=== PATIENT | male | born 1960 | race Caucasian/White ===

== ENCOUNTER 2018-05-09 18:40 | Emergency (ER) | payer OTHER ==
[~2018-05-09] VITALS: Ht 172.7 cm; Wt 72.6 kg
[~2018-05-09 18:40] MED LIST: CO Q-1010 MG PO; GARLIC100 MG PO; KEFLEX500 MG PO; MULTIPLE VITAMI1 CAP PO; ZOFRAN4 MG PO
[2018-05-09] MEDS ORDERED: CO Q-10 RED YE1 EACH PO (19:07)
[2018-05-09] MEDS ORDERED: GARLIC1 EAC1 PO (19:07)
[2018-05-09] MEDS ORDERED: MULTIVITAMINS1 EAC5 PO (19:07)
[2018-05-09] MEDS ORDERED: ST. JOSEPH ASPI81 M1 PO (19:07)
== END 2018-05-09 20:57 | disposition home or self-care (01) ==
LOC: ED 18:40
DX: S01.81XA Laceration without foreign body of other part of head, initial encounter (principal); Z23 Encounter for immunization; Z79.899 Other long term (current) drug therapy; Z79.82 Long term (current) use of aspirin; W22.8XXA Striking against or struck by other objects, initial encounter; Y93.89 Activity, other specified; Y92.89 Other specified places as the place of occurrence of the external cause; Y99.9 Unspecified external cause status

== ENCOUNTER → 2018-11-21 | Outpatient (CLI) | payer OTHER ==
[~2018-11-21] MED LIST changes: +CO Q-10 RED YE1 EACH PO; +COQ1050 MG PO; +GARLIC1 EAC1 PO; +MULTIVITAMINS1 EAC5 PO; +OMEGA 3 1,0001 EACH PO; +OMEGA 3 FISH O1 EACH PO; +ST. JOSEPH ASPI81 M1 PO
== END | disposition home or self-care (01) ==
LOC: CARD 13:48
DX: I35.0 Nonrheumatic aortic (valve) stenosis (principal)

== ENCOUNTER → 2019-01-29 | Outpatient (CLI) | payer OTHER ==
--- NOTE | ~2019-01-29 | ST ---
[place], [place] EXERCISE STRESS TEST REPORT NAME: DEMARIO HENDERSON UNIT #: [id number] ROOM: DOCTOR: URMILA MACK MD BIRTHDATE: [birth year] DOS: 01/29/2019 PHARMACOLOGICAL NUCLEAR STRESS TEST REASON FOR TESTING: Aortic stenosis. Baseline EKG, normal sinus rhythm, normal EKG. PROCEDURE: The patient received a rapid infusion of regadenoson 0.4 mg IV followed by saline flush. The patient experienced lightheadedness and dizziness. There were no EKG changes. There was an appropriate heart rate and blood pressure response to the infusion. Isotope was injected 40 seconds later. IMPRESSION: Well tolerated pharmacological stress test. Please see the separate imaging report for further details of the stress test results. Urmila Mack MD CM:STRESS:EXERCISE STRESS TEST REPORT [id number] URMILA MACK MD
--- NOTE | 2019-01-29 10:15 | NUR ---
INFORMED CONSENT OBTAINED FOR LEXISCAN NUCLEAR STRESS TEST WITH DR. MACK. RESTING EKG SINUS SHERWIN WITH A HR OF 56 WITH BP OF 122/76. LUNGS CLEAR WITH SPO2 OF 99% ON ROOM AIR. PT COMPLETED A 1:00 LEXISCAN PROTOCOL RECEIVING LEXISCAN 0.4 MG IV OVER 10 SECONDS. HAD NO CHEST PAIN OR ANY EKG CHANGES. DID C/O "ODD FEELING" AND FEELING LIGHTHEADED THAT WAS RELIEVED IN RECOVERY. HAD A PEAK HR OF 90 WITH BP OF 88/56. LAST RECOVERY HR OF 77 WITH BP OF 94/64. AWAITING SCANNING IN STABLE CONDITION.
== END | disposition home or self-care (01) ==
LOC: CARD 00:49
DX: I35.0 Nonrheumatic aortic (valve) stenosis (principal); I27.20 Pulmonary hypertension, unspecified; E78.5 Hyperlipidemia, unspecified; I38 Endocarditis, valve unspecified

== ENCOUNTER 2021-01-29 18:10 | Inpatient (IN) | payer OTHER ==
[~2021-01-29] VITALS: Ht 171.7 cm; Wt 75.6 kg
[2021-01-29 18:18] VITALS: BP 110/78
[2021-01-29 18:40] LABS: BASO # 0.1 10*3/uL (0.0-0.1); BASO % 0.6 % (0.0-1.0); EOS % 0.4 % (1.0-4.0); HEMATOCRIT 45.5 % (42.0-52.0); LYMPH # 1.6 10*3/uL (1.3-4.4); LYMPH % 14.5 % (27.0-41.0); MEAN CELL VOLUME 97.6 fl (80.0-94.0); MEAN CORPUSCULAR HGB 32.4 pg (27.0-31.0); MEAN CORPUSCULAR HGB CONC 33.2 g/dl (33.0-37.0); MEAN PLATELET VOLUME 9.9 fl (9.6-12.3); MONO # 0.7 10*3/uL (0.1-1.0); MONO % 6.2 % (3.0-9.0); NEUT # 8.5 10*3/uL (2.3-7.9); NEUT % 78.1 % (47.0-73.0); PLATELET COUNT AUTOMATED 225 10*3/uL (130-400); RED BLOOD COUNT 4.66 10*6/uL (4.50-5.90); RED CELL DISTRI WIDTH 12.1 % (0-14.5); WHITE BLOOD COUNT 10.9 10*3/uL (4.8-10.8)
[2021-01-29 18:50] VITALS: BP 96/61
[2021-01-29 18:57] LABS: ALBUMIN 3.7 gm/dl (3.1-4.5); ALKALINE PHOSPHATASE 53 U/L (45-117); BUN 20 mg/dl (7-24); CHLORIDE 107 mmol/L (98-107); CREATININE 1.33 mg/dL (0.70-1.30); POTASSIUM 3.9 mmol/L (3.5-5.1); SGOT/AST 18 IU/L (3-35); SGPT/ALT 35 U/L (12-78); SODIUM 140 mmol/L (136-145); TOTAL PROTEIN 7.8 gm/dL (6.4-8.2)
[2021-01-29 18:58] LABS: TROPONIN I < 0.015 ng/ml (<0.045)
[2021-01-29 20:26] VITALS: BP 113/71
[2021-01-29 21:33] LABS: BILIRUBIN Negative (Negative); BLOOD Negative (Negative); CLARITY Clear (Clear); COLOR Yellow (Yellow); GLUCOSE Negative (Negative); KETONE 1+ (Negative); LEUKO ESTERASE Negative (Negative); NITRITE Negative (Negative)
[2021-01-29 21:45] LABS: BACTERIA TRACE; MUCOUS 2+; RBC 0-2 rbc/hpf (0-2)
[2021-01-29 22:30] VITALS: BP 111/71
[2021-01-29 22:38] VITALS: BP 110/68
[2021-01-29] MEDS ORDERED: ST. JOSEPH ASPI81 M1 PO (22:55)
[2021-01-29] MEDS ORDERED: METOPROLOL SUCC25 M2 PO (22:55)
[2021-01-30 06:09] LABS: BASO # 0.1 10*3/uL (0.0-0.1); BASO % 0.8 % (0.0-1.0); EOS # 0.1 10*3/uL (0.0-0.4); EOS % 1.6 % (1.0-4.0); LYMPH # 2.1 10*3/uL (1.3-4.4); LYMPH % 33.8 % (27.0-41.0); MEAN CELL VOLUME 98.1 fl (80.0-94.0); MEAN CORPUSCULAR HGB 32.8 pg (27.0-31.0); MEAN CORPUSCULAR HGB CONC 33.4 g/dl (33.0-37.0); MEAN PLATELET VOLUME 10.2 fl (9.6-12.3); MONO # 0.7 10*3/uL (0.1-1.0); MONO % 10.6 % (3.0-9.0); NEUT # 3.3 10*3/uL (2.3-7.9); PLATELET COUNT AUTOMATED 192 10*3/uL (130-400); RED BLOOD COUNT 4.18 10*6/uL (4.50-5.90); RED CELL DISTRI WIDTH 12.1 % (0-14.5); WHITE BLOOD COUNT 6.2 10*3/uL (4.8-10.8)
[2021-01-30 06:37] LABS: BUN 16 mg/dl (7-24); CHLORIDE 109 mmol/L (98-107); CHOLESTEROL 178 mg/dL (<200); CREATININE 0.98 mg/dL (0.70-1.30); LDL CHOLESTEROL 110 mg/dL (9-159); POTASSIUM 3.6 mmol/L (3.5-5.1); SODIUM 141 mmol/L (136-145); TRIGLYCERIDES 63 mg/dl (<150)
[2021-01-30 08:00] VITALS: BP 112/64
[2021-01-30 12:00] VITALS: BP 132/88
== END 2021-01-30 15:09 | disposition home or self-care (01) | DRG 312 ==
LOC: ED 18:10 → EDHOLD 21:26 → 5E 21:26
PROVIDERS: Internal Medicine; Nurse Practitioner Family; ADMIT Student in an Organized Health Care Education/Training Program; ATTEND Student in an Organized Health Care Education/Training Program
DX: R55 Syncope and collapse (principal); N17.9 Acute kidney failure, unspecified; E86.0 Dehydration; E78.5 Hyperlipidemia, unspecified; R00.1 Bradycardia, unspecified; D72.829 Elevated white blood cell count, unspecified; D75.89 Other specified diseases of blood and blood-forming organs; R73.9 Hyperglycemia, unspecified; E83.41 Hypermagnesemia; Z95.2 Presence of prosthetic heart valve; Z82.49 Family history of ischemic heart disease and other diseases of the circulatory system; Z82.3 Family history of stroke; Z79.899 Other long term (current) drug therapy

== ENCOUNTER → 2021-02-04 | Outpatient (CLI) | payer OTHER ==
[~2021-02-04] MED LIST changes: +METOPROLOL SUCC25 M2 PO
== END | disposition home or self-care (01) ==
LOC: CARD 09:00
PROVIDERS: ATTEND Internal Medicine
DX: I35.0 Nonrheumatic aortic (valve) stenosis (principal); I51.7 Cardiomegaly

== ENCOUNTER 2022-10-10 00:34 | Emergency (ER) | payer OTHER ==
[2022-10-10] MEDS ORDERED: Ondansetron4 MG PO (00:51)
[2022-10-10 01:11] LABS: HEMATOCRIT 44.1 % (42.0-52.0); MEAN CELL VOLUME 96.9 fl (80.0-94.0); MEAN CORPUSCULAR HGB 32.1 pg (27.0-31.0); MEAN CORPUSCULAR HGB CONC 33.1 g/dl (33.0-37.0); PLATELET COUNT AUTOMATED 201 10*3/uL (130-400); RED BLOOD COUNT 4.55 10*6/uL (4.50-5.90); RED CELL DISTRI WIDTH 12.7 % (0-14.5); WHITE BLOOD COUNT 12.5 10*3/uL (4.8-10.8)
[2022-10-10 01:13] LABS: MANUAL DIFF REFLEX YES
[2022-10-10 01:21] LABS: ALKALINE PHOSPHATASE 49 U/L (46-116); BUN 19 mg/dl (9-23); CHLORIDE 106 mmol/L (98-107); LIPASE 34 U/L (12-53); POTASSIUM 4.1 mmol/L (3.4-5.1); SGPT/ALT 23 U/L (10-49); TOTAL PROTEIN 7.5 gm/dL (6.0-8.0)
[2022-10-10 01:32] LABS: PLATELET SUFFICIENCY NORMAL (NORMAL); TOTAL CELLS COUNTED 100 #CELLS
[2022-10-10 01:50] LABS: BILIRUBIN Negative (Negative); BLOOD Negative (Negative); CLARITY Clear (Clear); COLOR Yellow (Yellow); GLUCOSE Negative (Negative); KETONE Trace (Negative); LEUKO ESTERASE Negative (Negative); NITRITE Negative (Negative); PH 7.5 (4.5-8.0); SPECIFIC GRAVITY 1.025 (1.001-1.030); UROBILINOGEN 0.2 E.U./dl (0.0-1.0)
[2022-10-10 02:13] LABS: RBC 0-2 rbc/hpf (0-2); WBC 0-2 wbc/hpf (0-5)
== END 2022-10-10 03:38 | disposition home or self-care (01) ==
LOC: ED 00:34
PROVIDERS: Emergency Medicine
DX: R11.2 Nausea with vomiting, unspecified (principal); I10 Essential (primary) hypertension; Z98.890 Other specified postprocedural states

== ENCOUNTER 2023-01-30 00:36 | Emergency (ER) | payer OTHER ==
[~2023-01-30] VITALS: Ht 170.1 cm; Wt 72.6 kg
[~2023-01-30 00:36] MED LIST changes: +Ondansetron4 MG PO
[2023-01-30] MEDS ORDERED: VIBRAMYCIN100 MG PO (01:59)
== END 2023-01-30 02:16 | disposition home or self-care (01) ==
LOC: ED 00:36
DX: L02.31 Cutaneous abscess of buttock (principal); R73.9 Hyperglycemia, unspecified; E83.41 Hypermagnesemia; E78.5 Hyperlipidemia, unspecified; Z98.890 Other specified postprocedural states

== ENCOUNTER 2025-02-03 20:32 | Emergency (ER) | payer OTHER ==
[~2025-02-03] VITALS: Ht 170.1 cm; Wt 72.6 kg
[~2025-02-03 20:32] MED LIST changes: +SEPTDS PO; +VIBRAMYCIN100 MG PO
[2025-02-03] MEDS ORDERED: VIBRAMYCIN100 MG PO (23:02)
== END 2025-02-03 23:21 | disposition home or self-care (01) ==
LOC: ED 20:32
DX: L02.31 Cutaneous abscess of buttock (principal); Z79.82 Long term (current) use of aspirin; Z79.899 Other long term (current) drug therapy; Z98.890 Other specified postprocedural states